=== PATIENT | female | born 2000 | race Caucasian/White ===

== ENCOUNTER 2022-03-21 09:59 | Emergency (ER) | payer BC ==
[~2022-03-21] VITALS: Ht 175.3 cm; Wt 59.0 kg
[2022-03-21] MEDS ORDERED: GADOTERATE MEGLUMINE 5 MMOL/10 ML VIAL IV ONE (10:00)
--- NOTE | 2022-03-21 10:15 | NUR ---
Patient walked into ER for complaint of intermittent numbness on left side of face, mouth, and fingers of left hand. Patient also complained of slurred speech, these syptoms started last Saturday. Patient does not currently feel any numbness.
--- NOTE | 2022-03-21 10:24 | NUR ---
Urine specimen sent to the lab
[2022-03-21 10:38] LABS: HEMATOCRIT 41.6 % (31.2-41.9); MEAN CORPUSCULAR HEMOGLOBIN 31.7 uug (24.7-32.8); MEAN CORPUSCULAR VOLUME 94.2 fL (75.5-95.3); PLATELET COUNT (AUTO) 272 K/uL (179-408)
[2022-03-21 10:43] LABS: CARBON DIOXIDE 28 mmol/L (21-32); CHLORIDE 102 mmol/L (98-107); CREATININE 0.8 mg/dL (0.6-1.3); GLUCOSE 82 mg/dL (74-106); POTASSIUM 3.5 mmol/L (3.5-5.1); UREA NITROGEN, BLOOD 14 mg/dL (7-18)
[2022-03-21 10:49] LABS: *URINE HCG, QUAL NEG (NEGATIVE)
--- NOTE | 2022-03-21 11:24 | NUR ---
[facility] - ETA 1215 PM
--- NOTE | 2022-03-21 11:30 | NUR ---
LEFT MESSAGE FOR EDITH, MRI AT [facility], AWAITING CALL BACK
--- NOTE | 2022-03-21 11:39 | NUR ---
Spoke with Kelby who is in charge of MRI at [place]. Notified him that patient will be picked up here around [address] Kimbrough ordered MRI brain WWO contrast and MRA head WO contrast. Patient is set up to get MRI and received OK from Kelby.
--- NOTE | 2022-03-21 11:47 | NUR ---
Notified Kelby about patient's IUD, he stated that it would not be a problem and patient can still get the MRI.
--- NOTE | 2022-03-21 11:56 | NUR ---
IV inserted in left AC 20G. Flushing, patent, and intact.
[2022-03-21] MEDS ORDERED: LORAZEPAM 0.5 MG TABLET ONE (12:17)
[2022-03-21] MEDS: LORAZEPAM 0.5 MG TABLET PO ONE (12:19)
--- NOTE | 2022-03-21 12:21 | NUR ---
Patient picked up by ambulance to go to [place] for MRI.
--- NOTE | 2022-03-21 13:49 | NUR ---
Ambulance brought patient back from [facility].
[2022-03-21] MEDS ORDERED: LEVE500T9 PO (15:13)
[2022-03-21 15:27] VITALS: BP 131/81
--- NOTE | 2022-03-21 15:27 | NUR ---
Patient discharged to home in stable condition. Written and verbal after care instructions given. Patient verbalizes understanding of instructions. IV removed. Patient ambulate with steady gait. Stressed follow up or return to ER for worsening s/s.
== END 2022-03-21 15:28 | disposition home or self-care (01) ==
LOC: ER 09:59
DX: B69.0 Cysticercosis of central nervous system (principal); R22.0 Localized swelling, mass and lump, head; G93.9 Disorder of brain, unspecified; Z20.822 Contact with and (suspected) exposure to COVID-19; Z86.69 Personal history of other diseases of the nervous system and sense organs; Z88.8 Allergy status to other drugs, medicaments and biological substances
CPT/HCPCS: 70553; 99291; 70450; 71045; 87426; 80048; 84703; 85025; 85730; 84484; 36415; 93005; 70544; A9575; 70030-TC; A4663